=== PATIENT | female | born 1955 | race Caucasian/White ===

== ENCOUNTER 2017-11-28 10:16 | Outpatient (CLI) | payer BC | END 2017-11-28 10:17 | disposition home or self-care (01) | LOC: BICMAMMO 10:16 | PROVIDERS: ATTEND Obstetrics & Gynecology | DX: Z08 Encounter for follow-up examination after completed treatment for malignant neoplasm (principal); Z85.3 Personal history of malignant neoplasm of breast | CPT/HCPCS: 77066; G0279 ==

== ENCOUNTER 2018-05-15 11:24 | Outpatient (CLI) | payer BC ==
--- NOTE | 2018-05-15 16:56 | RAD ---
CHEST PA AND LATERAL: 05/15/18 HISTORY: 62-year-old female with history of possible pneumonia, persistent cough. COMPARISON: 03/13/10. FINDINGS: Upper range of normal somewhat globular shaped heart. No evidence for confluent pneumonia. There is s ome slight nodular changes overlying the right and left breast probably related to nipple shadow vers us some overlying confluent shadows. No confluent pneumonia, overt edema or pleural effusion. IMPRESSION: Borderline sized somewhat globular shaped heart. No evidence of pneumonia. POS: [facility]
== END 2018-05-15 11:25 | disposition home or self-care (01) ==
LOC: BICRAD 11:24
PROVIDERS: ATTEND Allergy & Immunology
DX: R05 Cough (principal)
CPT/HCPCS: 71046

== ENCOUNTER 2018-12-04 14:17 | Outpatient (CLI) | payer BC ==
--- NOTE | 2018-12-04 14:53 | MMO ---
Bilateral MAMMO Bilat Diag DDI+OK. CLINICAL HISTORY: Patient is 63 years old and is seen for diagnostic exam. The patient has no family history of breast cancer. The patient has a history of Lumpectomy procedure revealed ductal carcinoma in situ. in the left breast in January, and Stereotactic Core Biopsy procedure revealed ductal carcinoma in situ. in the left breast in December,. The patient has a history of left Lumpectomy in January, - malignant. VIEWS: The views performed were: bilateral craniocaudal with tomosynthesis; bilateral mediolateral oblique with tomosynthesis; bilateral mediolateral; and bilateral exaggerated craniocaudal. FILMS COMPARED: The present examination has been compared to prior imaging studies performed at [facility] on 12/02/2014, 11/27/2015, 11/27/2016 and 11/28/2017. MAMMOGRAM FINDINGS: There are scattered fibroglandular densities. There are no suspicious masses, suspicious calcifications, or new areas of architectural distortion. IMPRESSION: THERE IS NO MAMMOGRAPHIC EVIDENCE OF MALIGNANCY. A ROUTINE FOLLOW-UP MAMMOGRAM IN 1 YEAR IS RECOMMENDED. THE RESULTS OF THIS EXAM WERE SENT TO THE PATIENT. ACR BI-RADS Category 1 - Negative MAMMOGRAPHY NOTE: 1. A negative mammogram report should not delay a biopsy if a dominant of clinically suspicious mass is present. 2. Approximately 10% to 15% of breast cancers are not detected by mammography. 3. Adenosis and dense breasts may obscure an underlying neoplasm.
== END 2018-12-04 14:18 | disposition home or self-care (01) ==
LOC: BICMAMMO 14:17
PROVIDERS: ATTEND Obstetrics & Gynecology
DX: Z08 Encounter for follow-up examination after completed treatment for malignant neoplasm (principal); Z85.3 Personal history of malignant neoplasm of breast; Z90.12 Acquired absence of left breast and nipple
CPT/HCPCS: 77066; G0279

== ENCOUNTER 2019-03-31 13:58 | Outpatient (CLI) | payer BC ==
[2019-03-31 17:07] LABS: Mean Corpuscular HGB CONC 33.5 g/dL (32.0-36.0); Mean Corpuscular Hemoglobin 30.4 pg (27.0-31.0); Mean Corpuscular Volume 90.8 fL (78.0-98.0); Mean Platelet Volume 8.2 fL (7.4-10.4); Platelet Count 264 thou/uL (130-400); Red Blood Cell (RBC) Count 4.26 mill/uL (4.20-5.40); White Blood Cell (WBC) Count 7.9 thou/uL (4.8-10.8)
== END 2019-03-31 13:59 | disposition home or self-care (01) ==
LOC: LABBT 13:58
PROVIDERS: ATTEND Obstetrics & Gynecology
DX: Z01.812 Encounter for preprocedural laboratory examination (principal); N95.0 Postmenopausal bleeding
CPT/HCPCS: 85027; 86850; 86900; 86901

== ENCOUNTER 2019-04-02 10:08 | Day surgery (SDC) | payer BC ==
[2019-03-31 16:18] VITALS: BMI 21.6
[2019-04-02] MEDS ORDERED: Fentanyl 100 MCG/2 ML VIAL ONE ×2 (11:31→13:21)
--- NOTE | 2019-04-05 10:46 | OP ---
DATE OF PROCEDURE: 04/02/2019 PREOPERATIVE DIAGNOSIS: Postmenopausal bleeding. POSTOPERATIVE DIAGNOSIS: Postmenopausal bleeding. PROCEDURE PERFORMED: Hysteroscopy with dilation and curettage. COMPLICATIONS: None. ESTIMATED BLOOD LOSS: Minimal. URINARY OUTPUT: 300 mL of clear urine prior to procedure. INDICATIONS FOR PROCEDURE: Ms. Fartun Weems is a 63-year-old female, who presented to clinic with complaints of abnormal discharge, complaining of brown discharge, which was suspicious for postmenopausal bleeding. She then underwent a transvaginal ultrasound and her endometrial stripe was 10 mm. The patient is on tamoxifen therapy for history of breast cancer. She was counseled and the patient had undergone attempted endometrial biopsy in the clinic, however, it was unsuccessful due to the discomfort and cervical stenosis. Therefore, she was counseled and hysteroscopy D&C was recommended. FINDINGS: Atrophic vaginal and cervical epithelium. Uterus approximately 6 cm in length, endometrial cavity with atrophic-appearing endometrium with bilateral tubal ostia seen. PROCEDURE IN DETAIL: The patient was brought to the operating room. She was placed under general anesthesia. The patient was placed in dorsal lithotomy position. She was prepped and draped in a sterile fashion. An official time-out was performed. A single-sided speculum was placed in the vagina. The anterior aspect of the cervix was grasped with single-tooth tenaculum and the cervix was sequentially dilated using Aníbal dilators. Due to the retroversion of the uterus, the tenaculum was then placed in the posterior aspect, which allowed access into the endometrial cavity with the dilators. The uterus was sounded to approximately 6 cm, which was consistent with her ultrasound. TruClear hysteroscope was then placed through the cervical canal and into the endometrial cavity, noting an atrophic-appearing endometrial cavity. No abnormalities were seen. The hysteroscope was then removed. A gentle curettage was then performed. Scant pathology was obtained which was consistent with clinical appearance of atrophy. All instruments were then removed. All counts were correct x2. The patient was then placed back in the supine position. She was extubated without difficulty. The patient will be transferred to the recovery room in hemodynamically stable condition. Job ID: [id number] [facility]
== END 2019-04-02 14:55 | disposition home or self-care (01) ==
LOC: SDC 10:08
PROVIDERS: ATTEND Obstetrics & Gynecology
PROC: 0UJD8ZZ Inspection of Uterus and Cervix, Via Natural or Artificial Opening Endoscopic (ICD-10-PCS; principal; 2019-04-02)
PROC: 0UDB7ZX Extraction of Endometrium, Via Natural or Artificial Opening, Diagnostic (ICD-10-PCS; principal; 2019-04-02)
DX: N95.0 Postmenopausal bleeding (principal); Z85.3 Personal history of malignant neoplasm of breast; Z79.810 Long term (current) use of selective estrogen receptor modulators (SERMs); Z79.899 Other long term (current) drug therapy
CPT/HCPCS: 88305; J3010

== ENCOUNTER 2019-12-21 13:26 | Outpatient (CLI) | payer BC ==
--- NOTE | 2019-12-21 13:55 | MMO ---
Bilateral MAMMO Bilat Diag DDI+OK. CLINICAL HISTORY: Patient is 64 years old and is seen for diagnostic exam. The patient has no family history of breast cancer. The patient has a history of lumpectomy procedure revealed ductal carcinoma in situ. in the left breast in January, and Stereotactic core biopsy procedure revealed ductal carcinoma in situ. in the left breast in December,. The patient has a history of left Lumpectomy in January, - malignant. VIEWS: The views performed were: bilateral craniocaudal with tomosynthesis; bilateral mediolateral oblique with tomosynthesis; and bilateral mediolateral with tomosynthesis. FILMS COMPARED: The present examination has been compared to prior imaging studies performed at [facility] on 11/27/2015, 11/27/2016, 11/28/2017 and 12/04/2018. This study has been interpreted with the assistance of computer-aided detection. MAMMOGRAM FINDINGS: There are scattered fibroglandular densities. Benign calcifications are noted bilaterally. There are stable post-operative changes in the left breast. There are no suspicious masses, suspicious calcifications, or new areas of architectural distortion. IMPRESSION: THERE IS NO MAMMOGRAPHIC EVIDENCE OF MALIGNANCY. A ROUTINE FOLLOW-UP MAMMOGRAM IN 1 YEAR IS RECOMMENDED. THE RESULTS OF THIS EXAM WERE SENT TO THE PATIENT. ACR BI-RADS Category 2 - Benign finding MAMMOGRAPHY NOTE: 1. A negative mammogram report should not delay a biopsy if a dominant of clinically suspicious mass is present. 2. Approximately 10% to 15% of breast cancers are not detected by mammography. 3. Adenosis and dense breasts may obscure an underlying neoplasm. Reported by: AKASH BRYAN MD Electonically Signed: [id number]
== END 2019-12-21 13:27 | disposition home or self-care (01) ==
LOC: BICMAMMO 13:26
PROVIDERS: ATTEND Obstetrics & Gynecology
DX: Z08 Encounter for follow-up examination after completed treatment for malignant neoplasm (principal); Z85.3 Personal history of malignant neoplasm of breast
CPT/HCPCS: 77066; G0279

== ENCOUNTER 2020-12-29 12:46 | Outpatient (CLI) | payer BC | END 2020-12-29 12:47 | disposition home or self-care (01) | LOC: BICMAMMO 12:46 | PROVIDERS: ATTEND Obstetrics & Gynecology | DX: Z12.31 Encounter for screening mammogram for malignant neoplasm of breast (principal); Z85.3 Personal history of malignant neoplasm of breast; Z98.890 Other specified postprocedural states | CPT/HCPCS: 77063; 77067 ==